=== PATIENT | male | born 1995 | race Caucasian/White ===

== ENCOUNTER 2017-03-06 22:26 | Emergency (ER) | payer OTHER ==
[~2017-03-06] VITALS: Ht 193 cm; Wt 65.0 kg
[~2017-03-06 22:26] MED LIST: BUPR-83 PO; NAPR1TAB9 PO; OXYC1TAB3 PO
[2017-03-06 22:31] VITALS: Ht 193 cm; Wt 65.0 kg
[2017-03-06] MEDS ORDERED: ONDANSETRON INJ 2 MG/ML 2 ML VIAL IV STA (22:37)
[2017-03-06] MEDS ORDERED: SODIUM CHLORIDE 0.9% 1000ML 1,000 ML IV ONE (22:45)
[2017-03-06] MEDS ORDERED: AMPH10CA3 PO (22:56)
[2017-03-06 23:37] LABS: BUN/CREATININE RATIO 10.7 (10-20); CALCIUM 7.5 mg/dl (8.5-10.1); POTASSIUM 3.8 mmol/L (3.5-5.1)
[2017-03-07 06:27] VITALS: BP 104/53; PULSE 66; O2SAT 96
--- NOTE | 2017-03-07 07:34 | EMERGENCY ROOM VISIT NOTE ---
ED Visit Note First contact with patient: 22:33 CHIEF COMPLAINT: Altered mental status from Alcohol overdose HISTORY OF PRESENT ILLNESS: This 21 year old white male patient presents to the emergency department via ambulance for evaluation of altered mental status, presumably from alcohol intoxication. The patient was at the [employer] and does admit to drinking and smoking marijuana. The patient suffered several episodes of emesis, and was identified by EMS. EMS brings the patient to the ER for evaluation. The patient does not have pain or injury. He is comfortable now that he has arrived in the ER. He states that he has been drinking for the past 8 or 9 hours and is not vomiting times he has vomited. He does not report chronic medical disease. REVIEW OF SYSTEMS: Review of systems was somewhat limited secondary to patient' s presumed alcohol intoxication status. Review of systems was performed to the best of our ability and reperformed as the patient began to sober up. All other systems were reviewed and are negative. ALLERGIES: See EMR MEDICATIONS: See EMR PMH: No chronic medical disease SOCIAL HISTORY: Lives locally and drinks alcohol PHYSICAL EXAM VITALS: Vitals are noted on the nurse's note and reviewed by myself. Vital signs stable. GENERAL: White male, who is in no acute distress and resting comfortably. Patient is visibly altered and smells of alcohol. HEAD: Normocephalic atraumatic. EARS: External ear normal. External auditory canals clear, tympanic membranes pearly ramirez without erythema or effusion bilaterally. EYES: Pupils equal round and reactive to light and accommodation. Conjunctivae without injection, sclerae without icterus. Extraocular movements intact. NOSE: Patent, turbinates without inflammation or discharge. MOUTH: Mucous membranes moist. Tonsils are not enlarged. Pharynx without erythema, blood, vomitus, or exudate. Uvula midline. Airway patent. NECK: Supple without nuchal rigidity. No lymphadenopathy. Cervical spine is nontender. HEART: Regular rate and rhythm without murmurs gallops or rubs. LUNGS: Clear to auscultation bilaterally without wheezes, rales or rhonchi. No retractions or accessory muscle use. ABDOMEN: Positive normal bowel sounds x 4. Soft, nontender, without masses or organomegaly. No guarding or rebound tenderness. MUSCULOSKELETAL: No muscle atrophy, erythema, or edema noted. Gross motor function intact to all extremities. NEURO: Patient was alert to person but not place or time. They appear with altered mental status. SKIN: The skin was without rashes, erythema, edema, or bruising. No Tenting of the skin. EMERGENCY DEPARTMENT COURSE: Physical exam and history was performed. Nursing notes and EMR were reviewed. The patient appears to be altered on my examination. I suspect this is from an alcohol overdose. Conservative care measures and aspiration precautions were instituted. The patient was placed on sticker on and watched during the patient's stay. The patient was placed in a prone position. Blood work was obtained and was reviewed. He was given 1 L normal saline and 4 g IV Zofran. The patient's blood alcohol level was 198. This appears to be the primary cause of the altered status. Patient was reevaluated multiple times throughout the course of their emergency department stay. Over time the patient did sober up and was able to talk, walk , and drink fluids without difficulty. The patient was felt stable for discharge home. The patient was given alcohol intoxication handouts. The patient was discharged home in stable condition with a sober ride. Differential diagnosis: Etiologies such as alcohol intoxication, metabolic, infection, hypoglycemia, electrolyte abnormalities, cardiac sources, intracerebral event, toxicologic, neurologic, as well as others were entertained. DIAGNOSIS: Acute alcohol intoxication Current/Historical Medications Scheduled Amphetamine-Dextroamphetamine 10MG (Adderall Xr 10MG), 10 MG PO QAM Scheduled PRN Bupropion (Wellbutrin), 100 MG PO BID PRN for ADD Allergies Coded Allergies: No Known Allergies (Unverified , 08/26/14) Vital Signs Date Time Temp Pulse Resp B/P Pulse Ox O2 Delivery O2 Flow Rate FiO2 03/07/17 06:27 66 18 104/53 96 Room Air 03/07/17 04:30 58 14 88/48 96 03/07/17 04:00 73 11 93/51 95 03/07/17 03:30 89 10 97 03/07/17 03:02 70 03/07/17 03:00 63 12 102/52 95 03/07/17 02:30 76 14 90/53 95 03/07/17 02:00 73 14 93/46 96 03/07/17 01:30 76 13 96 03/07/17 01:20 74 16 90/57 96 Room Air 03/07/17 00:06 64 16 100/58 95 Room Air 03/06/17 22:53 67 03/06/17 22:31 16 98 Room Air Laboratory Results 03/06/17 22:48 Test 03/06/17 22:48 Anion Gap 11.0 mmol/L (3-11) Est Creatinine Clear Calc Drug Dose 107.4 ml/min Estimated GFR () 124.1 Estimated GFR (Non- 107.1 BUN/Creatinine Ratio 10.7 (10-20) Calcium Level 7.5 mg/dl (8.5-10.1) Ethyl Alcohol mg/dL 198.0 mg/dl (0-3) Medications Administered Medications (Trade) Dose Ordered Sig/[place] Route Start Time Stop Time Status Last Admin Dose Admin Sodium Chloride (Nss 1000ml) 1,000 ml @ 999 mls/hr Q1H1M ONCE IV 03/06/17 22:45 03/06/17 23:45 DC 03/06/17 22:45 999 MLS/HR Ondansetron HCl (Zofran Inj) 4 mg NOW STAT IV 03/06/17 22:37 03/06/17 22:38 DC 03/06/17 22:37 4 MG Departure Information Referrals No Doctor, Assigned (PCP) Patient Instructions [facility]
== END 2017-03-07 06:35 | disposition home or self-care (01) ==
LOC: EDBD 22:26 → C.EDC 22:28 → C.EDA 03-07 06:35
DX: F10.129 Alcohol abuse with intoxication, unspecified (principal); Y90.7 Blood alcohol level of 200-239 mg/100 ml